=== PATIENT | female | born 1935 | race Caucasian/White ===

== ENCOUNTER 2018-07-27 11:59 | Emergency (ER) | payer OTHER ==
[~2018-07-27] VITALS: Ht 162.6 cm; Wt 85.7 kg
[~2018-07-27 11:59] MED LIST: DICLOFENAC POTA50 MG PO; FLECTOR1 EACH TD; MOTRIN IB200 MG; ORPHENADRI30 MG/1 M1 IJ; TORADOL60 MG IM
[2018-07-27] MEDS ORDERED: NEURONTIN300 MG PO (12:39)
== END 2018-07-27 16:28 | disposition home or self-care (01) ==
LOC: ER 11:59
DX: N39.0 Urinary tract infection, site not specified (principal)

== ENCOUNTER → 2018-08-12 14:52 | Outpatient (CLI) | payer OTHER ==
[~2018-08-12 14:52] MED LIST changes: +NEURONTIN300 MG PO
== END | disposition home or self-care (01) ==
LOC: RAD 14:12 → EKG 14:52
DX: M48.07 Spinal stenosis, lumbosacral region (principal); M43.16 Spondylolisthesis, lumbar region; I10 Essential (primary) hypertension

== ENCOUNTER 2018-08-19 12:14 | Outpatient (CLI) | payer OTHER | END 2018-08-19 12:24 | disposition home or self-care (01) | LOC: LAB 12:14 | DX: M48.07 Spinal stenosis, lumbosacral region (principal); M43.16 Spondylolisthesis, lumbar region; N39.0 Urinary tract infection, site not specified; R82.79 Other abnormal findings on microbiological examination of urine ==